=== PATIENT | female | born 1990 | race Caucasian/White ===

== ENCOUNTER 2023-03-21 13:46 | Emergency (ER) | payer BC, SELFPAY ==
[2023-03-21 13:49] VITALS: BP 130/75; PULSE 76; RESP 16; TEMP 37.1; O2SAT 99
--- NOTE | 2023-03-21 14:30 | DI.RAD_ITS ---
Exam(s) XR RIBS RT W PA LAT CHEST XR SHOULDER RT COMPLETE 2+V EXAM: XR RIBS RT W PA LAT CHEST and XR shoulder RT complete 2 V CLINICAL HISTORY: trauma right rib pain TECHNIQUE: 2D digital imaging was performed.Nine images were obtained. COMPARISON: No priors for comparison. FINDINGS: MEDIASTINUM: Normal. HEART: Normal. PULMONARY VASCULATURE: Normal. LUNGS: Clear. PLEURAL SPACE: No pleural effusion or pneumothorax. BONE:There is an anterior right shoulder dislocation. There is a comminuted displaced fracture of th e greater tuberosity. The acromioclavicular joint is well maintained. RIGHT RIBS: No displaced rib fractures. OTHER FINDINGS:Normal. IMPRESSION: 1. No acute pulmonary findings. 2. No displaced right rib fractures. 3. Right anterior shoulder dislocation and comminuted displaced greater tuberosity fracture. DATA REPOSITORY: RADIATION DOSE DELIVERED:
[2023-03-21] MEDS: Ketorolac 15 MG/ML VIAL IVP (14:53)
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
[2023-03-21] MEDS: HYDROmorphone 2 MG/ML SYR 1 MG IVP (16:54)
--- NOTE | 2023-03-21 17:00 | DI.RAD_ITS ---
Exam(s) XR SHOULDER RT 1V EXAM: XR SHOULDER RT 1V CLINICAL HISTORY: ?reduction. TECHNIQUE: 2D digital imaging was performed. COMPARISON: CR XR SHOULDER RT COMPLETE 2+V from 03/21/2023 CR XR RIBS RT W PA LAT CHEST from 03/21/2023 FINDINGS: Single portable upright view performed post reduction. There appears to be reliant of the glenohumeral joint. The subacromial space is not diminished. Gre ater tuberosity fracture is again noted. There are no calcifications in the subacromial space. Ther e does not appear to be an obvious bony Bank[place] lesion. AC joint appears unremarkable as does the clavicle. IMPRESSION: Limited single view study reveals realignment of the glenohumeral joint. Greater tuberosity fracture again noted. AC joint appears unremarkable. DATA REPOSITORY: RADIATION DOSE DELIVERED:
--- NOTE | 2023-03-21 17:48 | W.EDPROG ---
Date of service: 03/21/23 Time of Service: 17:49 Medical Decision Making pt signed out to me pending attempt to reduce right shoulder dislocation. Idiscussed with her and she gave verbal consent to try lidocaine injection and dose of dilaudid and attempt reduction, if this fails she would be okay with procedural sedation Successful reduction using dilaudid and intraarticular lidocaine injection. No head pain,neck pain,chest pain, abdomen pain or back pain, intact csmt's,placed in sling and she will f/u with ortho stephen when she returns home to [place], return precautions given Imaging Data Radiologic Study: Attestation: I personally reviewed and interpreted this imaging study as follows: Imaging: X-Ray My impression: on second shoulder xray successful reduction of shoulder dislocation Procedures Orthopedic Joint Reduction Joint #1: Time Out Performed: Yes Side: right Joint Reduction Location: shoulder Analgesia: other (intraarticular injection) Local Anesthesia: Lidocaine 1% Amount of anesthesic used (mL): 20 Shoulder Technique Used (if applicable): external rotation Post-reduction neuro exam: intact Post-reduction vascular: intact Post Reduction X-Ray Obtained: Yes Post Reduction X-Ray Results: reduced Splint Applied: Yes (sling) Patient Tolerated Procedure: well Sign Out Sign Out Data: Sign Out Comment: Patient signed out pending orthopedic consult due to both fracture and dislocation pattern of the right humerus Last updated by Jeromy Lockhart NP at 03/21/23 16:00 Discharge Plan Disposition Patient Disposition: Home Condition: Stable Discharge Details Clinical Impression: Closed fracture of greater tuberosity of right humerus, Dislocation of shoulder, right, closed Primary Care Provider: No,Local ED Provider: Ortiz Velázquez Home Meds and New Rx's Prescriptions: No Action No Known Home Meds Discharge Instructions Instructions: Shoulder Dislocation (ED) Additional Instructions: you had a shoulder dislocation which was reduced back into place you also have a broken portion of your right arm you should follow up with an orthopedist in your home area as soon as possible, within 1-2 weeks if you feel more ill,have severe worsening pain or new pain such as abdominal pain.
== END 2023-03-21 18:03 | disposition home or self-care (01) ==
PROVIDERS: Emergency Provider Emergency Medicine
DX: S42.251A Displaced fracture of greater tuberosity of right humerus, initial encounter for closed fracture (principal); S43.004A Unspecified dislocation of right shoulder joint, initial encounter; V18.0XXA Pedal cycle driver injured in noncollision transport accident in nontraffic accident, initial encounter
CPT/HCPCS: 23655; 81025; 96374; 96375; 99284; 71046; 71100; 73020; 73030; J1170; J1885